=== PATIENT | male | born 1950 | race Caucasian/White ===

== ENCOUNTER 2021-08-30 13:39 | Inpatient (IN) ==
[2021-09-14] MEDS ORDERED: GLUCAGON 1 MG VIAL IM PRN (08:36)
[2021-09-14] MEDS ORDERED: CLORAZEPATE 3.75 MG TABLET PO PRN (13:40)
[2021-09-14] MEDS ORDERED: hydrALAZINE 20 MG/1 ML VIAL IV PRN (13:40)
[2021-09-14] MEDS ORDERED: SODIUM CHLORIDE 0.9% 1,000 ML IV SCH (16:00)
[2021-09-14] MEDS ORDERED: DEXTROSE 10% 250 ML BAG IV PRN (16:58)
[2021-09-14 18:03] LABS: Basophils % 0.4 % (0.0-0.8); Eosinophils # 0.1 10*3/uL (0.0-0.87); Eosinophils % 1.8 % (0.00-10.9); Hematocrit 40.1 VOL% (42.0-52.0); Immature Granulocytes % 0.2 %; Immature Granulocytes Absolute 0.01 #; Lymphocytes # 1.9 10*3/uL (1.4-4.0); Mean Corpuscular HGB Conc 32.4 GM/DL (32-36); Mean Corpuscular Volume 94.4 FL (87-102); Mean Platelet Volume 10.3 FL (9.6-12.0); Monocytes % 7.1 % (1.7-12.7); Neutrophils % 52.5 % (38.7-73.9); Platelet Count 179 T/CUMM (130-400); Red Blood Count 4.25 MC/CUMM (3.8-5.5); Red Cell Distribution Width 12.9 % (9.3-17.3); White Blood Count 4.9 T/CUMM (4-12)
[2021-09-14 18:21] LABS: Albumin 3.3 G/DL (3.4-5.0); Bilirubin,Total 0.7 MG/DL (0.20-1.00); Calcium 8.9 MG/DL (8.5-10.1); Osmolality,Calculated 277.7 MOS/KG (273-304); Potassium 4.3 MMOL/L (3.5-5.1); Total Protein 6.8 G/DL (6.4-8.2)
[2021-09-14] MEDS: CHLORHEXIDINE 4% SOLN 118 ML BOTTLE TOP SCH ×2 (19:05→20:44)
[2021-09-14] MEDS: CHLORHEXIDINE 0.12% ORAL RINSE 60 ML BOTTLE SWISH/SPIT SCH (20:44)
[2021-09-15] MEDS ORDERED: VANCOMYCIN 1,000 MG VIAL ONE (04:15)
[2021-09-15] MEDS: CHLORHEXIDINE 4% SOLN 118 ML BOTTLE TOP SCH (04:30)
[2021-09-15] MEDS ORDERED: CEFUROXIME INJ 1,500 MG in SODIUM CHLORIDE 0.9% 100 ML IV ONE (05:00)
[2021-09-15] MEDS ORDERED: FAMOTIDINE 20 MG TABLET PO ONE (06:00)
[2021-09-15] MEDS ORDERED: SUCCINYLCHOLINE 200 MG/10 ML VIAL ONE (06:14)
[2021-09-15] MEDS ORDERED: MIDAZOLAM 10 MG/2 ML VIAL ONE ×3 (06:14)
[2021-09-15] MEDS ORDERED: SEVOFLURANE 1 UNIT/15 MINUTE INH ONE ×14 (06:14→10:28)
[2021-09-15] MEDS ORDERED: ETOMIDATE 40 MG/20 ML VIAL IV ONE (06:14)
[2021-09-15] MEDS ORDERED: LIDOCAINE 2% 5 ML VIAL ONE ×2 (06:14→09:43)
[2021-09-15] MEDS ORDERED: SUFentanil 250 MCG/5 ML AMP ONE ×3 (06:15)
[2021-09-15] MEDS ORDERED: SODIUM CHLORIDE 0.9% 250 ML IV ONE (06:16)
[2021-09-15] MEDS ORDERED: LACTATED RINGERS 1,000 ML IV ONE (06:16)
[2021-09-15] MEDS ORDERED: SODIUM CHLORIDE 0.9% 1,000 ML IV ONE (06:16)
[2021-09-15] MEDS ORDERED: SODIUM CHLORIDE 0.9% 100 ML IV ONE (06:16)
[2021-09-15] MEDS ORDERED: AMINOCAPROIC ACID 5,000 MG/20 ML VIAL ONE (06:16)
[2021-09-15] MEDS ORDERED: CALCIUM CHLORIDE 1,000 MG/10 ML VIAL IV ONE ×2 (06:16→09:25)
[2021-09-15] MEDS ORDERED: NITROGLYCERIN DRIP 50 MG/250 ML BOTTLE IV ONE (06:20)
[2021-09-15] MEDS ORDERED: PHENYLEPHRINE DRIP 20 MG/250 ML PREMIX IV ONE (06:20)
[2021-09-15] MEDS ORDERED: HEPARIN/NACL 0.9% 2 UNITS/ML 1,000 UNIT/500 ML BAG IV ONE (06:20)
[2021-09-15] MEDS ORDERED: DIAZEPAM 5 MG TABLET PO ONE (06:30)
[2021-09-15] MEDS ORDERED: ePHEDrine 50 MG/ML VIAL ONE (06:36)
[2021-09-15] MEDS ORDERED: SODIUM BICARBONATE 50 MEQ/50 ML VIAL IV ONE ×2 (07:27→09:44)
[2021-09-15] MEDS ORDERED: NITROPRUSSIDE 50 MG/2 ML VIAL ONE ×2 (07:27→19:57)
[2021-09-15] MEDS ORDERED: POTASSIUM CHLORIDE RIDER 20 MEQ/100 ML PREMIX IV ONE (07:27)
[2021-09-15] MEDS ORDERED: PHENYLEPHRINE DRIP 40 MG/250 ML PREMIX IV ONE (07:28)
[2021-09-15] MEDS ORDERED: CALCIUM CHLORIDE 1,000 MG/10 ML SYRINGE IV ONE (07:28)
[2021-09-15 07:30] LABS: ABG Base Excess 4.1 MMOL/L (-2.5-2.5); ABG HCO3 28.1 MMOL/L (20-26); ABG PCO2 38.5 MM HG (35-48); ABG PH 7.468 (7.35-7.45); ABG TCO2 24.3 MMOL/L (23-27); Glucose Heart Surgery 105 MG/DL (74-106); Hematocrit Heart Surgery 38.7 PERCENT (42-52); Hemoglobin Heart Surgery 12.6 G/DL (14.0-18.0); PCO2 Patient Temp Arterial 38.5 MMHG; PH Patient Temp Arterial 7.468; Patient Temperature 37 CELCIUS; Potassium Heart/CVR 4.9 MMOL/L (3.5-5.1); Sodium Heart/CVR 140 MMOL/L (135-145)
[2021-09-15] MEDS ORDERED: ALBUMIN 5% 12.5 GM/250 ML VIAL IV ONE ×2 (07:33)
[2021-09-15] MEDS ORDERED: MINERAL OIL/PETROLATUM OPH OINT 3.5 GM TUBE ONE (07:34)
[2021-09-15 07:36] LABS: Bacteria,Urine Occasional /HPF (Few); RBC,Urine 14 /HPF (0-4); Urine Appearance Clear (Clear); Urine Color Yellow (Yellow)
[2021-09-15 07:37] LABS: Bilirubin,Urine Negative (Negative); Blood, Urine Large mg/dL (Negative); Glucose,Urine (UA) Negative (Negative); Ketones,Urine Negative (Negative); Nitrite,Urine Negative (Negative); Protein,Urine Negative; Urine Specific Gravity 1.015 (1.001-1.035); Urine Urobilinogen 0.2 EU/DL (<2.0); Urine pH 7.5 (4.5-8.0)
[2021-09-15] MEDS ORDERED: VECURONIUM 10 MG VIAL IV ONE (08:00)
[2021-09-15 08:23] LABS: Hematocrit Heart Surgery 30.7 PERCENT (42-52); Hemoglobin Heart Surgery 9.9 G/DL (14.0-18.0); PCO2 Patient Temp Venous 33.6 MM HG; PH Patient Temp Venous 7.511; PO2 Patient Temp Venous 36.1 MM HG; Potassium Heart/CVR 4.9 MMOL/L (3.5-5.1); VBG Base Excess 4.1 MEQ/L (0-4); VBG HCO3 27.8 MEQ/L (24-28); VBG Oxygen Saturation 80.7 %; VBG PCO2 38.8 MMHG (41-51); VBG PH 7.466; VBG PO2 44.4 MMHG (17-40); VBG Total CO2 25.5 MMOL/L
[2021-09-15] MEDS: CHLORHEXIDINE 0.12% ORAL RINSE 60 ML BOTTLE SWISH/SPIT SCH (08:49)
[2021-09-15 09:40] LABS: ABG Base Excess 2.4 MMOL/L (-2.5-2.5); ABG HCO3 26.6 MMOL/L (20-26); ABG PCO2 36.1 MM HG (35-48); ABG PH 7.465 (7.35-7.45); ABG TCO2 23.1 MMOL/L (23-27); Glucose Heart Surgery 217 MG/DL (74-106); Hematocrit Heart Surgery 34.5 PERCENT (42-52); Hemoglobin Heart Surgery 11.2 G/DL (14.0-18.0); Ionized Calcium Arterial 1.39 MMOL/L (1.21-1.46); PCO2 Patient Temp Arterial 36.1 MMHG; PH Patient Temp Arterial 7.465; Patient Temperature 37 CELCIUS; Potassium Heart/CVR 4.6 MMOL/L (3.5-5.1); Sodium Heart/CVR 134 MMOL/L (135-145)
[2021-09-15] MEDS ORDERED: ALBUMIN 25% 25 GM/100 ML VIAL IV ONE (09:43)
[2021-09-15] MEDS ORDERED: HEPARIN 10,000 UNIT/10 ML VIAL ONE (09:43)
[2021-09-15] MEDS ORDERED: MANNITOL 100 GM/500 ML BAG IV ONE (09:43)
[2021-09-15] MEDS ORDERED: DEXTROSE 5% KCL 20 MEQ 20 MEQ/1,000 ML BAG IV ONE (09:43)
[2021-09-15] MEDS ORDERED: MAGNESIUM SULFATE 5 GM/10 ML VIAL IV ONE (09:43)
[2021-09-15] MEDS ORDERED: methylPREDNISolone SOD SUC 1,000 MG/8 ML VIAL ONE (09:43)
[2021-09-15] MEDS ORDERED: PROTAMINE SULFATE 250 MG/25 ML VIAL IV ONE (09:43)
[2021-09-15] MEDS ORDERED: FUROSEMIDE 20 MG/2 ML VIAL ONE (09:44)
[2021-09-15] MEDS ORDERED: MORPHINE 4 MG/1 ML VIAL IV PRN ×2 (09:56→21:28)
[2021-09-15] MEDS ORDERED: CHLORHEXIDINE 4% SOLN 118 ML BOTTLE TOP PRN (10:14)
[2021-09-15] MEDS ORDERED: POTASSIUM CHLORIDE RIDER 10 MEQ/100 ML PREMIX IV PRN (10:14)
[2021-09-15] MEDS ORDERED: INSULIN REGULAR 100 UNIT/ML IV ONE (10:14)
[2021-09-15] MEDS ORDERED: CALCIUM CHLORIDE 1,000 MG/10 ML SYRINGE IV PRN (10:14)
[2021-09-15] MEDS ORDERED: ACETAMINOPHEN 650 MG SUPP RECTAL PRN (10:14)
[2021-09-15] MEDS ORDERED: PHENYLEPHRINE DRIP 40 MG/250 ML PREMIX IV PRN (10:14)
[2021-09-15] MEDS ORDERED: NITROPRUSSIDE 100 MG in DEXTROSE 5% 250 ML IV PRN (10:14)
[2021-09-15] MEDS ORDERED: MORPHINE 10 MG/1 ML VIAL IV PRN (10:14)
[2021-09-15] MEDS ORDERED: MAGNESIUM SULF RIDER 4 GM/100 ML PREMIX IV PRN (10:14)
[2021-09-15] MEDS ORDERED: VECURONIUM 10 MG VIAL IV PRN ×2 (10:14)
[2021-09-15] MEDS ORDERED: DEXTROSE 10% 250 ML BAG IV PRN ×2 (10:14)
[2021-09-15] MEDS ORDERED: MIDAZOLAM 10 MG/2 ML VIAL IV PRN (10:14)
[2021-09-15] MEDS ORDERED: LACTATED RINGERS 250 ML IV PRN (10:14)
[2021-09-15] MEDS ORDERED: MIDAZOLAM 2 MG/2 ML VIAL IV PRN (10:14)
[2021-09-15] MEDS ORDERED: MAGNESIUM SULF RIDER 2 GM/50 ML PREMIX IV PRN (10:14)
[2021-09-15] MEDS ORDERED: INSULIN REGULAR 100 UNIT/ML IV PRN (10:14)
[2021-09-15] MEDS ORDERED: INSULIN REGULAR DRIP 100 ML IV SCH (10:30)
[2021-09-15] MEDS ORDERED: SODIUM CHLORIDE 0.45% 1,000 ML IV SCH ×2 (10:30)
[2021-09-15 10:50] LABS: ABG Base Excess 3.4 MMOL/L (-2.5-2.5); ABG HCO3 27.4 MMOL/L (20-26); ABG Oxygen Saturation 99.4 % (95-100); ABG PCO2 39.6 MM HG (35-48); ABG TCO2 23.9 MMOL/L (23-27); Glucose Heart Surgery 220 MG/DL (74-106)
[2021-09-15 10:52] LABS: Basophils % 0.2 % (0.0-0.8); Eosinophils % 0.2 % (0.00-10.9); Hematocrit 37.5 VOL% (42.0-52.0); Hemoglobin 12.7 GM/DL (14.0-18.0); Immature Granulocytes % 0.7 %; Immature Granulocytes Absolute 0.06 #; Lymphocytes # 0.4 10*3/uL (1.4-4.0); Lymphocytes % 4.9 % (21.2-54.2); Mean Corpuscular HGB Conc 33.9 GM/DL (32-36); Mean Corpuscular Volume 91.5 FL (87-102); Mean Platelet Volume 10.1 FL (9.6-12.0); Monocytes % 2.1 % (1.7-12.7); Neutrophils % 91.9 % (38.7-73.9); Platelet Count 160 T/CUMM (130-400); Red Cell Distribution Width 12.7 % (9.3-17.3)
[2021-09-15 11:02] LABS: INR 1.1; PT Patient Result 12.4 SECS (10.5-12.0); Partial Thromboplastin Time 26.6 SECS (23.8-32.1)
[2021-09-15 11:12] LABS: CKMB % 6.4 %
[2021-09-15 11:16] LABS: Albumin 3.3 G/DL (3.4-5.0); Bilirubin,Total 1.3 MG/DL (0.20-1.00); Calcium 10.1 MG/DL (8.5-10.1); Osmolality,Calculated 283.7 MOS/KG (273-304); Total Protein 6.3 G/DL (6.4-8.2)
[2021-09-15 11:17] LABS: High Sensitive Troponin I* 2331.3 ng/L (0-78)
[2021-09-15] MEDS: POTASSIUM CHLORIDE RIDER 20 MEQ/100 ML PREMIX IV PRN ×2 (11:37→19:41)
[2021-09-15] MEDS: ALBUMIN 5% 12.5 GM/250 ML VIAL IV PRN ×2 (11:50→17:56)
[2021-09-15] MEDS: LACTATED RINGERS 1,000 ML IV PRN ×2 (12:02→16:20)
[2021-09-15 12:03] LABS: Anisocytosis 1+; Band Neutrophils 12 % (0-10); Lymphocytes 3 % (20-55); Macrocytosis 1+; Metamyelocytes 1 %; Platelet Estimate Normal; Segmented Neutrophils 83 % (50-85); Total Cells Counted 100
[2021-09-15 13:10] LABS: ABG Base Excess 3.4 MMOL/L (-2.5-2.5); ABG HCO3 27.5 MMOL/L (20-26); ABG Oxygen Saturation 99.2 % (95-100); ABG PCO2 42.8 MM HG (35-48); ABG PH 7.427 (7.35-7.45); ABG TCO2 24.7 MMOL/L (23-27); Glucose Heart Surgery 191 MG/DL (74-106); Hematocrit Heart Surgery 38.6 PERCENT (42-52); Hemoglobin Heart Surgery 12.6 G/DL (14.0-18.0); Potassium Heart/CVR 4.2 MMOL/L (3.5-5.1)
[2021-09-15 16:19] LABS: ABG Base Excess 2.6 MMOL/L (-2.5-2.5); ABG HCO3 26.7 MMOL/L (20-26); ABG PCO2 44.5 MM HG (35-48); ABG PH 7.403 (7.35-7.45); ABG TCO2 24.6 MMOL/L (23-27); Glucose Heart Surgery 150 MG/DL (74-106); Hematocrit Heart Surgery 36.3 PERCENT (42-52); Hemoglobin Heart Surgery 11.8 G/DL (14.0-18.0); Potassium Heart/CVR 4.2 MMOL/L (3.5-5.1)
[2021-09-15 18:01] LABS: ABG Base Excess 3.1 MMOL/L (-2.5-2.5); ABG HCO3 27.2 MMOL/L (20-26); ABG Oxygen Saturation 98.9 % (95-100); ABG PCO2 43.4 MM HG (35-48); ABG PH 7.418 (7.35-7.45); ABG TCO2 24.9 MMOL/L (23-27); Glucose Heart Surgery 169 MG/DL (74-106); Hematocrit Heart Surgery 35.5 PERCENT (42-52); Hemoglobin Heart Surgery 11.5 G/DL (14.0-18.0); Potassium Heart/CVR 4.4 MMOL/L (3.5-5.1)
[2021-09-15] MEDS: CEFUROXIME INJ 1,500 MG in SODIUM CHLORIDE 0.9% 100 ML IV SCH (18:30)
[2021-09-15 19:32] LABS: ABG Base Excess 0.5 MMOL/L (-2.5-2.5); ABG HCO3 24.8 MMOL/L (20-26); ABG Oxygen Saturation 97.3 % (95-100); ABG PCO2 44.1 MM HG (35-48); ABG PH 7.377 (7.35-7.45); ABG PO2 98.1 MM HG (80-95); ABG TCO2 22.9 MMOL/L (23-27); Glucose Heart Surgery 215 MG/DL (74-106); Hematocrit Heart Surgery 37.8 PERCENT (42-52); Hemoglobin Heart Surgery 12.3 G/DL (14.0-18.0); Potassium Heart/CVR 4.2 MMOL/L (3.5-5.1)
[2021-09-15 20:00] LABS: CKMB % 4.3 %
[2021-09-15 20:03] LABS: High Sensitive Troponin I* 6709.5 ng/L (0-78)
[2021-09-15 20:13] LABS: ABG Base Excess 0.5 MMOL/L (-2.5-2.5); ABG HCO3 24.8 MMOL/L (20-26); ABG Oxygen Saturation 98.3 % (95-100); ABG PCO2 43.5 MM HG (35-48); ABG PH 7.381 (7.35-7.45); ABG TCO2 22.8 MMOL/L (23-27); Glucose Heart Surgery 223 MG/DL (74-106); Hematocrit Heart Surgery 38.3 PERCENT (42-52); Hemoglobin Heart Surgery 12.5 G/DL (14.0-18.0); Potassium Heart/CVR 4.9 MMOL/L (3.5-5.1)
[2021-09-15] MEDS ORDERED: CHLORHEXIDINE 0.12% ORAL RINSE 60 ML BOTTLE SWISH/SPIT SCH (21:00)
[2021-09-15] MEDS: ONDANSETRON 4 MG/2 ML VIAL IV PRN (21:15)
[2021-09-15 21:19] LABS: ABG Base Excess 0.1 MMOL/L (-2.5-2.5); ABG HCO3 24.5 MMOL/L (20-26); ABG Oxygen Saturation 98.3 % (95-100); ABG PCO2 41.7 MM HG (35-48); ABG PH 7.389 (7.35-7.45); ABG TCO2 22.3 MMOL/L (23-27); Glucose Heart Surgery 239 MG/DL (74-106); Hematocrit Heart Surgery 37.4 PERCENT (42-52); Hemoglobin Heart Surgery 12.1 G/DL (14.0-18.0); Potassium Heart/CVR 4.4 MMOL/L (3.5-5.1)
[2021-09-15] MEDS: ALBUTEROL 1.25 MG/3 ML NEB RESP TX PRN (21:54)
[2021-09-15 22:19] LABS: ABG Base Excess -1.6 MMOL/L (-2.5-2.5); ABG Oxygen Saturation 96.3 % (95-100); ABG PCO2 50.2 MM HG (35-48); ABG PH 7.309 (7.35-7.45); ABG PO2 94.4 MM HG (80-95); ABG TCO2 22.7 MMOL/L (23-27); Glucose Heart Surgery 223 MG/DL (74-106); Hematocrit Heart Surgery 36.2 PERCENT (42-52); Hemoglobin Heart Surgery 11.7 G/DL (14.0-18.0); Potassium Heart/CVR 4.4 MMOL/L (3.5-5.1)
[2021-09-15 23:18] LABS: ABG Base Excess -1.3 MMOL/L (-2.5-2.5); ABG HCO3 23.3 MMOL/L (20-26); ABG PCO2 49.8 MM HG (35-48); ABG PH 7.316 (7.35-7.45); ABG PO2 90.5 MM HG (80-95); ABG TCO2 22.9 MMOL/L (23-27); Glucose Heart Surgery 201 MG/DL (74-106); Hematocrit Heart Surgery 35.5 PERCENT (42-52); Hemoglobin Heart Surgery 11.5 G/DL (14.0-18.0); Potassium Heart/CVR 4.5 MMOL/L (3.5-5.1)
[2021-09-16] MEDS ORDERED: FUROSEMIDE 40 MG/4 ML VIAL ONE (01:01)
[2021-09-16] MEDS ORDERED: FUROSEMIDE 40 MG/4 ML VIAL IV PRN (01:07)
[2021-09-16 02:25] LABS: ABG Base Excess 2.7 MMOL/L (-2.5-2.5); ABG HCO3 26.8 MMOL/L (20-26); ABG Oxygen Saturation 96.6 % (95-100); ABG PCO2 32.1 MM HG (35-48); ABG PH 7.503 (7.35-7.45); ABG PO2 78.4 MM HG (80-95); ABG TCO2 22.2 MMOL/L (23-27); Glucose Heart Surgery 165 MG/DL (74-106); Hematocrit Heart Surgery 37.4 PERCENT (42-52); Hemoglobin Heart Surgery 12.2 G/DL (14.0-18.0); Potassium Heart/CVR 4.3 MMOL/L (3.5-5.1)
[2021-09-16] MEDS: ALBUTEROL 1.25 MG/3 ML NEB RESP TX PRN (02:27)
[2021-09-16] MEDS: POTASSIUM CHLORIDE RIDER 20 MEQ/100 ML PREMIX IV PRN (02:31)
[2021-09-16] MEDS: ONDANSETRON 4 MG/2 ML VIAL IV PRN ×2 (02:35→14:55)
[2021-09-16 04:10] LABS: ABG Base Excess 2.4 MMOL/L (-2.5-2.5); ABG HCO3 26.5 MMOL/L (20-26); ABG Oxygen Saturation 95.4 % (95-100); ABG PCO2 59.3 MM HG (35-48); ABG PH 7.314 (7.35-7.45); ABG PO2 87.2 MM HG (80-95); ABG TCO2 27.1 MMOL/L (23-27); Glucose Heart Surgery 144 MG/DL (74-106); Hematocrit Heart Surgery 35.8 PERCENT (42-52); Hemoglobin Heart Surgery 11.6 G/DL (14.0-18.0); Potassium Heart/CVR 4.6 MMOL/L (3.5-5.1)
[2021-09-16 04:23] LABS: Basophils % 0.1 % (0.0-0.8); Hematocrit 35.3 VOL% (42.0-52.0); Hemoglobin 11.6 GM/DL (14.0-18.0); Immature Granulocytes % 0.6 %; Immature Granulocytes Absolute 0.11 #; Lymphocytes # 0.5 10*3/uL (1.4-4.0); Lymphocytes % 2.8 % (21.2-54.2); Mean Corpuscular HGB Conc 32.9 GM/DL (32-36); Mean Corpuscular Volume 92.4 FL (87-102); Mean Platelet Volume 10.6 FL (9.6-12.0); Monocytes % 5.3 % (1.7-12.7); Neutrophils % 91.2 % (38.7-73.9); Platelet Count 130 T/CUMM (130-400); Red Blood Count 3.82 MC/CUMM (3.8-5.5); Red Cell Distribution Width 13.2 % (9.3-17.3); White Blood Count 17.2 T/CUMM (4-12)
[2021-09-16 04:42] LABS: Albumin 3.6 G/DL (3.4-5.0); Bilirubin,Direct 0.19 MG/DL (0.0-0.20); Bilirubin,Total 0.7 MG/DL (0.20-1.00); Calcium 9.4 MG/DL (8.5-10.1); Osmolality,Calculated 285.4 MOS/KG (273-304); Potassium 4.6 MMOL/L (3.5-5.1); Total Protein 6.2 G/DL (6.4-8.2)
[2021-09-16 04:44] LABS: CKMB % 2.7 %; High Sensitive Troponin I* 7317.2 ng/L (0-78)
[2021-09-16 05:11] LABS: Lymphocytes 1 % (20-55); Platelet Estimate Adequate; Segmented Neutrophils 99 % (50-85); Total Cells Counted 100
[2021-09-16 05:14] LABS: ABG Base Excess 3.3 MMOL/L (-2.5-2.5); ABG HCO3 27.3 MMOL/L (20-26); ABG Oxygen Saturation 95.2 % (95-100); ABG PCO2 51.1 MM HG (35-48); ABG PH 7.372 (7.35-7.45); ABG PO2 80.2 MM HG (80-95); ABG TCO2 26.4 MMOL/L (23-27); Glucose Heart Surgery 123 MG/DL (74-106); Hematocrit Heart Surgery 36.8 PERCENT (42-52); Potassium Heart/CVR 4.6 MMOL/L (3.5-5.1)
[2021-09-16] MEDS: CEFUROXIME INJ 1,500 MG in SODIUM CHLORIDE 0.9% 100 ML IV SCH ×2 (05:44→18:34)
[2021-09-16] MEDS ORDERED: POTASSIUM CHLORIDE 20 MEQ TABLET PO PRN (08:17)
[2021-09-16] MEDS ORDERED: MAGNESIUM HYDROXIDE SUSP 30 ML UDCUP PO PRN (08:17)
[2021-09-16] MEDS ORDERED: MAGNESIUM SULF RIDER 4 GM/100 ML PREMIX IV PRN (08:17)
[2021-09-16] MEDS ORDERED: MAGNESIUM SULF RIDER 2 GM/50 ML PREMIX IV PRN (08:17)
[2021-09-16] MEDS ORDERED: ACETAMINOPHEN 325 MG TABLET PO PRN (08:17)
[2021-09-16] MEDS ORDERED: DEXTROSE 10% 250 ML BAG IV PRN (08:17)
[2021-09-16] MEDS ORDERED: ALUMINUM/MAGNES/SIMETH MAX STR 30 ML UDCUP PO PRN (08:17)
[2021-09-16] MEDS ORDERED: oxyCODONE/ACETAMINOPHEN 5-325 MG TABLET PO PRN (08:17)
[2021-09-16] MEDS ORDERED: GLUCAGON 1 MG VIAL IM PRN (08:17)
[2021-09-16] MEDS ORDERED: ASPIRIN EC 325 MG TABLET PO ONE (09:00)
[2021-09-16] MEDS: amLODIPine 5 MG TABLET PO SCH (09:20)
[2021-09-16] MEDS: DOCUSATE SODIUM 100 MG CAPSULE PO SCH (09:20)
[2021-09-16] MEDS: LOSARTAN 25 MG TABLET PO SCH (09:20)
[2021-09-16] MEDS: FERROUS SULFATE 325 MG TABLET PO SCH (09:20)
[2021-09-16] MEDS: PANTOPRAZOLE 40 MG TABLET PO SCH (09:20)
[2021-09-16] MEDS: CHLORHEXIDINE 0.12% ORAL RINSE 60 ML BOTTLE SWISH/SPIT SCH ×2 (09:21→21:31)
[2021-09-16] MEDS: METOPROLOL TARTRATE 25 MG TABLET PO SCH ×2 (10:14→21:31)
[2021-09-16] MEDS: AMIODARONE 200 MG TABLET PO SCH ×2 (10:14→21:31)
[2021-09-16 11:39] LABS: CKMB % 2.2 %
[2021-09-16 11:40] LABS: High Sensitive Troponin I* 2667.6 ng/L (0-78)
[2021-09-16] MEDS: SODIUM CHLOR 0.45% KCL 20 MEQ 20 MEQ/1,000 ML BAG IV SCH (16:57)
[2021-09-17] MEDS: ZALEPLON 5 MG CAPSULE PO PRN ×2 (01:39→22:35)
[2021-09-17] MEDS ORDERED: FUROSEMIDE 40 MG/4 ML VIAL IV ONE (06:00)
[2021-09-17 06:28] LABS: Basophils % 0.1 % (0.0-0.8); Hematocrit 36.1 VOL% (42.0-52.0); Hemoglobin 11.6 GM/DL (14.0-18.0); Immature Granulocytes % 1.9 %; Lymphocytes # 0.7 10*3/uL (1.4-4.0); Lymphocytes % 3.4 % (21.2-54.2); Mean Corpuscular HGB Conc 32.1 GM/DL (32-36); Mean Corpuscular Volume 95.8 FL (87-102); Mean Platelet Volume 10.8 FL (9.6-12.0); Monocytes % 4.3 % (1.7-12.7); Neutrophils % 90.3 % (38.7-73.9); Platelet Count 102 T/CUMM (130-400); Red Blood Count 3.77 MC/CUMM (3.8-5.5); Red Cell Distribution Width 13.5 % (9.3-17.3); White Blood Count 20.6 T/CUMM (4-12)
[2021-09-17 06:46] LABS: Albumin 3.2 G/DL (3.4-5.0); Bilirubin,Direct 0.16 MG/DL (0.0-0.20); Bilirubin,Total 0.6 MG/DL (0.20-1.00); Calcium 9.1 MG/DL (8.5-10.1); Total Protein 6.2 G/DL (6.4-8.2)
[2021-09-17 06:47] LABS: Lymphocytes 6 % (20-55); Segmented Neutrophils 92 % (50-85); Total Cells Counted 100
[2021-09-17 06:49] LABS: Albumin 3.2 G/DL (3.4-5.0); Bilirubin,Direct 0.14 MG/DL (0.0-0.20); Bilirubin,Indirect 0.5 MG/DL (0.0-1.0); Bilirubin,Total 0.6 MG/DL (0.20-1.00); High Sensitive Troponin I* 1413.4 ng/L (0-78); Total Protein 5.9 G/DL (6.4-8.2)
[2021-09-17 06:55] LABS: Potassium 4.7 MMOL/L (3.5-5.1)
[2021-09-17 06:59] LABS: Osmolality,Calculated 280.1 MOS/KG (273-304)
[2021-09-17] MEDS: AMIODARONE 200 MG TABLET PO SCH ×2 (08:44→21:03)
[2021-09-17] MEDS: METOPROLOL TARTRATE 25 MG TABLET PO SCH ×2 (08:44→21:03)
[2021-09-17] MEDS: PANTOPRAZOLE 40 MG TABLET PO SCH (08:45)
[2021-09-17] MEDS: ASPIRIN EC 81 MG TABLET PO SCH (08:45)
[2021-09-17] MEDS: LOSARTAN 25 MG TABLET PO SCH (08:45)
[2021-09-17] MEDS: DOCUSATE SODIUM 100 MG CAPSULE PO SCH (08:45)
[2021-09-17] MEDS: FERROUS SULFATE 325 MG TABLET PO SCH (08:45)
[2021-09-17] MEDS: amLODIPine 5 MG TABLET PO SCH (08:45)
[2021-09-17] MEDS: CHLORHEXIDINE 0.12% ORAL RINSE 60 ML BOTTLE SWISH/SPIT SCH ×2 (08:46→21:04)
[2021-09-17] MEDS: SODIUM CHLOR 0.45% KCL 20 MEQ 20 MEQ/1,000 ML BAG IV SCH (16:30)
[2021-09-18 06:29] LABS: Basophils % 0.1 % (0.0-0.8); Hematocrit 36.3 VOL% (42.0-52.0); Hemoglobin 11.8 GM/DL (14.0-18.0); Immature Granulocytes % 0.9 %; Immature Granulocytes Absolute 0.13 #; Lymphocytes % 6.3 % (21.2-54.2); Mean Corpuscular HGB Conc 32.5 GM/DL (32-36); Mean Corpuscular Volume 94.5 FL (87-102); Monocytes % 5.1 % (1.7-12.7); Neutrophils % 87.6 % (38.7-73.9); Red Blood Count 3.84 MC/CUMM (3.8-5.5)
[2021-09-18 06:31] LABS: Platelet Count 94 T/CUMM (130-400)
[2021-09-18 06:47] LABS: Hypochromia Slight; Microcytosis Slight; Platelet Estimate Decreased
[2021-09-18 07:06] LABS: Albumin 3.1 G/DL (3.4-5.0); Bilirubin,Direct 0.14 MG/DL (0.0-0.20); Bilirubin,Total 1.6 MG/DL (0.20-1.00); Osmolality,Calculated 277.1 MOS/KG (273-304); Potassium 4.5 MMOL/L (3.5-5.1); Total Protein 6.4 G/DL (6.4-8.2)
[2021-09-18 07:07] LABS: Alanine Aminotransferase 35 U/L (16-61); Albumin 3.3 G/DL (3.4-5.0); Alkaline Phosphatase 59 U/L (45-117); Aspartate Amino Transferase 34 U/L (0-37); Bilirubin,Indirect 0.5 MG/DL (0.0-1.0); Total Protein 6.1 G/DL (6.4-8.2)
[2021-09-18] MEDS ORDERED: LACTULOSE 20 GM/30 ML UDCUP PO PRN (08:16)
[2021-09-18] MEDS: DOCUSATE SODIUM 100 MG CAPSULE PO SCH (09:38)
[2021-09-18] MEDS: AMIODARONE 200 MG TABLET PO SCH ×2 (09:38→21:05)
[2021-09-18] MEDS: METOPROLOL TARTRATE 25 MG TABLET PO SCH ×2 (09:38→21:04)
[2021-09-18] MEDS: amLODIPine 5 MG TABLET PO SCH (09:38)
[2021-09-18] MEDS: PANTOPRAZOLE 40 MG TABLET PO SCH (09:39)
[2021-09-18] MEDS: ASPIRIN EC 81 MG TABLET PO SCH (09:39)
[2021-09-18] MEDS: FERROUS SULFATE 325 MG TABLET PO SCH (09:39)
[2021-09-18] MEDS: LOSARTAN 25 MG TABLET PO SCH (09:39)
[2021-09-18] MEDS: CHLORHEXIDINE 0.12% ORAL RINSE 60 ML BOTTLE SWISH/SPIT SCH ×2 (09:40→21:05)
[2021-09-18] MEDS: APIXABAN 5 MG TABLET PO SCH ×2 (09:42→21:05)
[2021-09-18] MEDS: POLYETHYLENE GLYCOL POWDER 17 GM PACK PO SCH (09:43)
[2021-09-18] MEDS: ZALEPLON 5 MG CAPSULE PO PRN (21:04)
[2021-09-19 06:10] LABS: Basophils % 0.1 % (0.0-0.8); Eosinophils % 0.2 % (0.00-10.9); Hematocrit 34.9 VOL% (42.0-52.0); Hemoglobin 11.3 GM/DL (14.0-18.0); Immature Granulocytes % 0.2 %; Immature Granulocytes Absolute 0.02 #; Lymphocytes % 12.7 % (21.2-54.2); Mean Corpuscular HGB Conc 32.4 GM/DL (32-36); Mean Corpuscular Volume 94.3 FL (87-102); Monocytes % 7.3 % (1.7-12.7); Neutrophils % 79.5 % (38.7-73.9); Platelet Count 109 T/CUMM (130-400); Red Cell Distribution Width 12.8 % (9.3-17.3); White Blood Count 8.1 T/CUMM (4-12)
[2021-09-19 06:22] LABS: Potassium 4.1 MMOL/L (3.5-5.1)
[2021-09-19] MEDS: ONDANSETRON 4 MG/2 ML VIAL IV PRN (09:45)
[2021-09-19] MEDS: AMIODARONE 200 MG TABLET PO SCH ×2 (09:46→11:23)
[2021-09-19] MEDS: amLODIPine 5 MG TABLET PO SCH ×2 (09:46→11:23)
[2021-09-19] MEDS: APIXABAN 5 MG TABLET PO SCH ×2 (09:46→11:23)
[2021-09-19] MEDS: METOPROLOL TARTRATE 25 MG TABLET PO SCH ×2 (09:46→11:23)
[2021-09-19] MEDS: FERROUS SULFATE 325 MG TABLET PO SCH ×2 (09:47→11:23)
[2021-09-19] MEDS: ASPIRIN EC 81 MG TABLET PO SCH ×2 (09:47→11:23)
[2021-09-19] MEDS: POLYETHYLENE GLYCOL POWDER 17 GM PACK PO SCH ×2 (09:47→11:23)
[2021-09-19] MEDS: PANTOPRAZOLE 40 MG TABLET PO SCH ×2 (09:47→11:25)
[2021-09-19] MEDS: DOCUSATE SODIUM 100 MG CAPSULE PO SCH ×2 (09:47→11:23)
[2021-09-19] MEDS: CHLORHEXIDINE 0.12% ORAL RINSE 60 ML BOTTLE SWISH/SPIT SCH ×3 (09:47→20:19)
[2021-09-19] MEDS: LOSARTAN 25 MG TABLET PO SCH ×2 (09:50→11:23)
[2021-09-19] MEDS ORDERED: PHENYLEPHRINE DRIP 40 MG/250 ML PREMIX IV ONE (10:05)
[2021-09-19] MEDS ORDERED: PHENYLEPHRINE DRIP 40 MG/250 ML PREMIX IV PRN ×2 (10:12→11:32)
[2021-09-19] MEDS ORDERED: SODIUM CHLORIDE 0.9% 1,000 ML IV ONE (10:14)
[2021-09-19] MEDS ORDERED: ROCURONIUM 50 MG/5 ML VIAL IV ONE (10:33)
[2021-09-19] MEDS ORDERED: ETOMIDATE 40 MG/20 ML VIAL IV ONE (10:33)
[2021-09-19] MEDS ORDERED: KETAMINE 500 MG/10 ML VIAL ONE (10:34)
[2021-09-19] MEDS ORDERED: SUCCINYLCHOLINE 200 MG/10 ML VIAL ONE (10:35)
[2021-09-19] MEDS ORDERED: ONDANSETRON 4 MG/2 ML VIAL IV ONE (10:35)
[2021-09-19] MEDS ORDERED: ALBUMIN 5% 25.0 GM/500 ML VIAL IV ONE ×2 (10:53→11:10)
[2021-09-19] MEDS ORDERED: CEFUROXIME INJ 1,500 MG in SODIUM CHLORIDE 0.9% 100 ML IV ONE (10:57)
[2021-09-19] MEDS ORDERED: VANCOMYCIN 1,000 MG VIAL ONE ×2 (11:07→11:08)
[2021-09-19] MEDS ORDERED: EPINEPHrine 1 MG/ML VIAL ONE (11:10)
[2021-09-19] MEDS ORDERED: SODIUM CHLORIDE 0.9% 100 ML IV ONE (11:10)
[2021-09-19] MEDS ORDERED: POTASSIUM CHLORIDE RIDER 20 MEQ/100 ML PREMIX IV ONE (11:10)
[2021-09-19] MEDS ORDERED: NITROPRUSSIDE 50 MG/2 ML VIAL ONE (11:10)
[2021-09-19] MEDS ORDERED: EPINEPHrine 1 MG/10 ML SYRINGE ONE (11:11)
[2021-09-19] MEDS ORDERED: ATROPINE 1 MG/10 ML SYRINGE ONE (11:11)
[2021-09-19] MEDS ORDERED: SODIUM CHLORIDE 0.9% 250 ML IV ONE (11:11)
[2021-09-19] MEDS ORDERED: LIDOCAINE 100 MG/5 ML SYRINGE ONE (11:11)
[2021-09-19] MEDS ORDERED: INSULIN REGULAR 100 UNIT/ML IV ONE (11:32)
[2021-09-19] MEDS ORDERED: MIDAZOLAM 2 MG/2 ML VIAL IV PRN (11:32)
[2021-09-19] MEDS ORDERED: ONDANSETRON 4 MG/2 ML VIAL IV PRN (11:32)
[2021-09-19] MEDS ORDERED: POTASSIUM CHLORIDE RIDER 10 MEQ/100 ML PREMIX IV PRN (11:32)
[2021-09-19] MEDS ORDERED: NITROPRUSSIDE 100 MG in DEXTROSE 5% 250 ML IV PRN (11:32)
[2021-09-19] MEDS ORDERED: CHLORHEXIDINE 4% SOLN 118 ML BOTTLE TOP PRN (11:32)
[2021-09-19] MEDS ORDERED: MIDAZOLAM 10 MG/2 ML VIAL IV PRN (11:32)
[2021-09-19] MEDS ORDERED: MAGNESIUM SULF RIDER 2 GM/50 ML PREMIX IV PRN (11:32)
[2021-09-19] MEDS ORDERED: LACTATED RINGERS 250 ML IV PRN (11:32)
[2021-09-19] MEDS ORDERED: INSULIN REGULAR 100 UNIT/ML IV PRN (11:32)
[2021-09-19] MEDS ORDERED: INSULIN REGULAR DRIP 100 ML IV SCH (11:32)
[2021-09-19] MEDS ORDERED: VECURONIUM 10 MG VIAL IV PRN ×2 (11:32)
[2021-09-19] MEDS ORDERED: ACETAMINOPHEN 650 MG SUPP RECTAL PRN (11:32)
[2021-09-19] MEDS ORDERED: DEXTROSE 10% 250 ML BAG IV PRN ×2 (11:32)
[2021-09-19] MEDS ORDERED: CALCIUM CHLORIDE 1,000 MG/10 ML SYRINGE IV PRN (11:32)
[2021-09-19] MEDS ORDERED: MAGNESIUM SULF RIDER 4 GM/100 ML PREMIX IV PRN (11:32)
[2021-09-19] MEDS ORDERED: SODIUM CHLORIDE 0.45% 1,000 ML IV SCH ×2 (11:32)
[2021-09-19] MEDS ORDERED: SEVOFLURANE 1 UNIT/15 MINUTE INH ONE (11:33)
[2021-09-19] MEDS: AMIODARONE INJ 100 MG in DEXTROSE 5% 100 ML IV SCH ×2 (12:16→23:22)
[2021-09-19] MEDS ORDERED: MIDAZOLAM 10 MG/2 ML VIAL ONE (12:41)
[2021-09-19] MEDS ORDERED: SUFentanil 250 MCG/5 ML AMP ONE (12:41)
[2021-09-19 13:04] LABS: ABG Base Excess 0.9 MMOL/L (-2.5-2.5); ABG HCO3 24.8 MMOL/L (20-26); ABG Oxygen Saturation 98.4 % (95-100); ABG PCO2 36.3 MM HG (35-48); ABG PH 7.452 (7.35-7.45); ABG PO2 164.8 MM HG (80-95); ABG TCO2 25.9 MMOL/L (23-27); Glucose Heart Surgery 212 MG/DL (74-106); Hemoglobin Heart Surgery 9.3 G/DL (14.0-18.0)
[2021-09-19 13:20] LABS: Hematocrit 26.3 VOL% (42.0-52.0); Hemoglobin 8.8 GM/DL (14.0-18.0); Immature Granulocytes % 0.7 %; Immature Granulocytes Absolute 0.07 #; Lymphocytes # 0.4 10*3/uL (1.4-4.0); Mean Corpuscular HGB Conc 33.5 GM/DL (32-36); Mean Corpuscular Volume 93.6 FL (87-102); Mean Platelet Volume 11.4 FL (9.6-12.0); Monocytes % 5.4 % (1.7-12.7); Neutrophils % 89.9 % (38.7-73.9); Platelet Count 94 T/CUMM (130-400); Red Blood Count 2.81 MC/CUMM (3.8-5.5); Red Cell Distribution Width 12.7 % (9.3-17.3); White Blood Count 10.6 T/CUMM (4-12)
[2021-09-19 13:27] LABS: INR 1.1; PT Patient Result 12.6 SECS (10.5-12.0); Partial Thromboplastin Time 24.8 SECS (23.8-32.1)
[2021-09-19 13:34] LABS: Albumin 2.7 G/DL (3.4-5.0); Bilirubin,Total 0.7 MG/DL (0.20-1.00); Calcium 7.7 MG/DL (8.5-10.1); Osmolality,Calculated 287.8 MOS/KG (273-304); Potassium 4.2 MMOL/L (3.5-5.1)
[2021-09-19] MEDS: LACTATED RINGERS 1,000 ML IV PRN ×2 (14:30→16:15)
[2021-09-19 16:03] LABS: ABG Base Excess 3.7 MMOL/L (-2.5-2.5); ABG HCO3 27.7 MMOL/L (20-26); ABG Oxygen Saturation 98.3 % (95-100); ABG PCO2 37.5 MM HG (35-48); ABG PH 7.472 (7.35-7.45); Glucose Heart Surgery 132 MG/DL (74-106); Hematocrit Heart Surgery 29.3 PERCENT (42-52); Hemoglobin Heart Surgery 9.5 G/DL (14.0-18.0); Potassium Heart/CVR 4.5 MMOL/L (3.5-5.1)
[2021-09-19] MEDS: MORPHINE 10 MG/1 ML VIAL IV PRN ×2 (16:13→20:15)
[2021-09-19] MEDS: ALBUMIN 5% 12.5 GM/250 ML VIAL IV PRN ×3 (16:29→17:59)
[2021-09-19 17:06] LABS: ABG Base Excess 2.3 MMOL/L (-2.5-2.5); ABG HCO3 26.9 MMOL/L (20-26); ABG Oxygen Saturation 97.2 % (95-100); ABG PCO2 41.8 MM HG (35-48); ABG PH 7.426 (7.35-7.45); ABG PO2 104.4 MM HG (80-95); ABG TCO2 28.2 MMOL/L (23-27); Glucose Heart Surgery 111 MG/DL (74-106); Potassium Heart/CVR 4.2 MMOL/L (3.5-5.1)
[2021-09-19] MEDS ORDERED: FUROSEMIDE 40 MG/4 ML VIAL IV ONE (18:30)
[2021-09-19] MEDS: CEFUROXIME INJ 1,500 MG in SODIUM CHLORIDE 0.9% 100 ML IV SCH (18:36)
[2021-09-19 19:41] LABS: ABG Base Excess 3.7 MMOL/L (-2.5-2.5); ABG HCO3 27.7 MMOL/L (20-26); ABG Oxygen Saturation 96.3 % (95-100); ABG PCO2 45.6 MM HG (35-48); ABG PH 7.409 (7.35-7.45); ABG PO2 81.6 MM HG (80-95); ABG TCO2 26.6 MMOL/L (23-27); Glucose Heart Surgery 136 MG/DL (74-106); Hematocrit Heart Surgery 27.8 PERCENT (42-52); Hemoglobin Heart Surgery 8.9 G/DL (14.0-18.0); Potassium Heart/CVR 4.1 MMOL/L (3.5-5.1)
[2021-09-19] MEDS: INSULIN REGULAR 100 UNIT/ML SUBCUT SCH (19:58)
[2021-09-19] MEDS: POTASSIUM CHLORIDE RIDER 20 MEQ/100 ML PREMIX IV PRN (20:10)
[2021-09-19] MEDS ORDERED: ASCORBIC ACID 500 MG TABLET PO SCH (21:00)
[2021-09-19] MEDS ORDERED: ROSUVASTATIN 10 MG TABLET PO SCH (21:00)
[2021-09-19] MEDS ORDERED: ATORVASTATIN 20 MG TABLET PO SCH (21:00)
[2021-09-19 21:06] LABS: Schistocytes Few
[2021-09-19 21:07] LABS: Burr Cells Slight; Microcytosis Slight; Ovalocytes Slight; Platelet Estimate Decreased
[2021-09-19 23:58] LABS: Potassium 4.2 MMOL/L (3.5-5.1)
[2021-09-20] MEDS: INSULIN REGULAR 100 UNIT/ML SUBCUT SCH ×6 (00:14→20:37)
[2021-09-20] MEDS: MORPHINE 10 MG/1 ML VIAL IV PRN (01:07)
[2021-09-20 04:10] LABS: ABG Base Excess 3.9 MMOL/L (-2.5-2.5); ABG HCO3 27.8 MMOL/L (20-26); ABG Oxygen Saturation 95.8 % (95-100); ABG PCO2 49.1 MM HG (35-48); ABG PH 7.388 (7.35-7.45); ABG PO2 78.1 MM HG (80-95); Allen Test Positive
[2021-09-20 04:30] LABS: Basophils % 0.1 % (0.0-0.8); Eosinophils % 0.2 % (0.00-10.9); Hematocrit 29.3 VOL% (42.0-52.0); Hemoglobin 9.7 GM/DL (14.0-18.0); Immature Granulocytes % 0.5 %; Immature Granulocytes Absolute 0.04 #; Lymphocytes % 10.8 % (21.2-54.2); Mean Corpuscular HGB Conc 33.1 GM/DL (32-36); Mean Corpuscular Volume 94.2 FL (87-102); Mean Platelet Volume 11.1 FL (9.6-12.0); Monocytes % 8.8 % (1.7-12.7); Neutrophils % 79.6 % (38.7-73.9); Platelet Count 93 T/CUMM (130-400); Red Blood Count 3.11 MC/CUMM (3.8-5.5); Red Cell Distribution Width 13.3 % (9.3-17.3); White Blood Count 8.9 T/CUMM (4-12)
[2021-09-20 04:53] LABS: Hypochromia 1+; Microcytosis 1+; Platelet Estimate Decreased
[2021-09-20 04:54] LABS: Alanine Aminotransferase 23 U/L (16-61); Albumin 2.9 G/DL (3.4-5.0); Alkaline Phosphatase 43 U/L (45-117); Aspartate Amino Transferase 22 U/L (0-37); Bilirubin,Indirect 0.7 MG/DL (0.0-1.0); Blood Urea Nitrogen 27 MG/DL (7-18); Calcium 8.1 MG/DL (8.5-10.1); Carbon Dioxide 30 MMOL/L (21-32); Estimated Glom Filtration Rate 81 ML/MIN; Glucose 111 MG/DL (74-106); Osmolality,Calculated 280.7 MOS/KG (273-304); Potassium 4.3 MMOL/L (3.5-5.1); Sodium 138 MMOL/L (136-145); Total Protein 5.3 G/DL (6.4-8.2)
[2021-09-20] MEDS: POTASSIUM CHLORIDE RIDER 20 MEQ/100 ML PREMIX IV PRN (05:14)
[2021-09-20] MEDS ORDERED: AMIODARONE INJ 100 MG in DEXTROSE 5% 100 ML IV ONE (06:11)
[2021-09-20] MEDS ORDERED: AMIODARONE 150 MG/3 ML VIAL ONE (06:16)
[2021-09-20] MEDS ORDERED: AMIODARONE INJ 450 MG in DEXTROSE 5% 241 ML IV SCH (06:30)
[2021-09-20] MEDS: CEFUROXIME INJ 1,500 MG in SODIUM CHLORIDE 0.9% 100 ML IV SCH ×2 (06:31→18:32)
[2021-09-20] MEDS: KETOROLAC 30 MG/1 ML VIAL IV SCH ×3 (08:28→20:38)
[2021-09-20] MEDS: ASPIRIN EC 81 MG TABLET PO SCH (08:28)
[2021-09-20] MEDS: CHLORHEXIDINE 0.12% ORAL RINSE 60 ML BOTTLE SWISH/SPIT SCH ×3 (08:28→20:37)
[2021-09-20] MEDS: oxyCODONE/ACETAMINOPHEN 5-325 MG TABLET PO PRN ×2 (08:30→20:38)
[2021-09-20] MEDS ORDERED: DOCUSATE SODIUM 100 MG CAPSULE PO PRN (08:42)
[2021-09-20] MEDS ORDERED: MAGNESIUM SULF RIDER 2 GM/50 ML PREMIX IV PRN (08:54)
[2021-09-20] MEDS ORDERED: GLUCAGON 1 MG VIAL IM PRN (08:54)
[2021-09-20] MEDS ORDERED: POTASSIUM CHLORIDE 20 MEQ TABLET PO PRN (08:54)
[2021-09-20] MEDS ORDERED: ACETAMINOPHEN 325 MG TABLET PO PRN (08:54)
[2021-09-20] MEDS ORDERED: MAGNESIUM SULF RIDER 4 GM/100 ML PREMIX IV PRN (08:54)
[2021-09-20] MEDS ORDERED: ALUMINUM/MAGNES/SIMETH MAX STR 30 ML UDCUP PO PRN (08:54)
[2021-09-20] MEDS ORDERED: MAGNESIUM HYDROXIDE SUSP 30 ML UDCUP PO PRN (08:54)
[2021-09-20] MEDS ORDERED: METOPROLOL TARTRATE 25 MG TABLET PO SCH (09:00)
[2021-09-20] MEDS: ONDANSETRON 4 MG/2 ML VIAL IV PRN ×3 (09:00→19:19)
[2021-09-20] MEDS ORDERED: DEXTROSE 10% 250 ML BAG IV PRN (09:04)
[2021-09-20] MEDS: DOCUSATE SODIUM 100 MG CAPSULE PO SCH (10:00)
[2021-09-20] MEDS: ASCORBIC ACID 500 MG TABLET PO SCH ×2 (10:00→20:38)
[2021-09-20] MEDS: PANTOPRAZOLE 40 MG TABLET PO SCH (10:00)
[2021-09-20] MEDS: FERROUS SULFATE 325 MG TABLET PO SCH (10:00)
[2021-09-20] MEDS: SODIUM CHLOR 0.45% KCL 20 MEQ 20 MEQ/1,000 ML BAG IV SCH (10:21)
[2021-09-20] MEDS ORDERED: EPINEPHrine 1 MG/ML VIAL ONE (11:15)
[2021-09-20] MEDS ORDERED: ALBUMIN 5% 25 GM/500 ML VIAL IV ONE (12:00)
[2021-09-20] MEDS: AMIODARONE INJ 450 MG in DEXTROSE 5% 241 ML IV SCH (12:21)
[2021-09-20] MEDS ORDERED: SODIUM CHLORIDE 0.9% 1,000 ML IV PRN (14:21)
[2021-09-20 14:43] LABS: Basophils % 0.1 % (0.0-0.8); Eosinophils % 0.1 % (0.00-10.9); Hematocrit 30.1 VOL% (42.0-52.0); Hemoglobin 9.8 GM/DL (14.0-18.0); Immature Granulocytes % 0.4 %; Immature Granulocytes Absolute 0.04 #; Lymphocytes # 0.7 10*3/uL (1.4-4.0); Lymphocytes % 6.5 % (21.2-54.2); Mean Corpuscular HGB Conc 32.6 GM/DL (32-36); Mean Platelet Volume 10.3 FL (9.6-12.0); Monocytes % 7.3 % (1.7-12.7); Neutrophils % 85.6 % (38.7-73.9); Platelet Count 108 T/CUMM (130-400); Red Blood Count 3.17 MC/CUMM (3.8-5.5); Red Cell Distribution Width 13.2 % (9.3-17.3); White Blood Count 10.7 T/CUMM (4-12)
[2021-09-20 19:41] LABS: Hematocrit 28.1 VOL% (42.0-52.0); Hemoglobin 9.2 GM/DL (14.0-18.0)
[2021-09-20] MEDS: ZALEPLON 5 MG CAPSULE PO PRN (20:38)
[2021-09-20] MEDS: ROSUVASTATIN 10 MG TABLET PO SCH (20:38)
[2021-09-21] MEDS: oxyCODONE/ACETAMINOPHEN 5-325 MG TABLET PO PRN (01:53)
[2021-09-21] MEDS: KETOROLAC 30 MG/1 ML VIAL IV SCH ×4 (03:40→21:46)
[2021-09-21] MEDS: AMIODARONE INJ 450 MG in DEXTROSE 5% 241 ML IV SCH (04:25)
[2021-09-21 05:06] LABS: Basophils % 0.1 % (0.0-0.8); Eosinophils # 0.1 10*3/uL (0.0-0.87); Eosinophils % 1.2 % (0.00-10.9); Hematocrit 28.9 VOL% (42.0-52.0); Hemoglobin 9.3 GM/DL (14.0-18.0); Immature Granulocytes % 0.5 %; Immature Granulocytes Absolute 0.04 #; Lymphocytes # 0.7 10*3/uL (1.4-4.0); Lymphocytes % 7.9 % (21.2-54.2); Mean Corpuscular HGB Conc 32.2 GM/DL (32-36); Mean Corpuscular Volume 95.4 FL (87-102); Mean Platelet Volume 11.3 FL (9.6-12.0); Monocytes % 7.2 % (1.7-12.7); Neutrophils % 83.1 % (38.7-73.9); Red Blood Count 3.03 MC/CUMM (3.8-5.5); Red Cell Distribution Width 13.2 % (9.3-17.3); White Blood Count 8.4 T/CUMM (4-12)
[2021-09-21 05:09] LABS: Platelet Count 101 T/CUMM (130-400)
[2021-09-21 05:26] LABS: Alanine Aminotransferase 24 U/L (16-61); Albumin 2.8 G/DL (3.4-5.0); Alkaline Phosphatase 46 U/L (45-117); Aspartate Amino Transferase 19 U/L (0-37); Bilirubin,Indirect 0.6 MG/DL (0.0-1.0); Blood Urea Nitrogen 33 MG/DL (7-18); Calcium 8.5 MG/DL (8.5-10.1); Carbon Dioxide 30 MMOL/L (21-32); Estimated Glom Filtration Rate 74 ML/MIN; Glucose 118 MG/DL (74-106); Osmolality,Calculated 273.4 MOS/KG (273-304); Potassium 3.8 MMOL/L (3.5-5.1); Sodium 133 MMOL/L (136-145); Total Protein 5.5 G/DL (6.4-8.2)
[2021-09-21 05:40] LABS: Anisocytosis 1+; Macrocytosis 1+; Platelet Estimate Adequate
[2021-09-21] MEDS ORDERED: FUROSEMIDE 40 MG/4 ML VIAL IV ONE (06:00)
[2021-09-21] MEDS ORDERED: POTASSIUM CHLORIDE 20 MEQ TABLET PO ONE (08:09)
[2021-09-21] MEDS: ASCORBIC ACID 500 MG TABLET PO SCH ×2 (08:25→21:45)
[2021-09-21] MEDS: DOCUSATE SODIUM 100 MG CAPSULE PO SCH (08:25)
[2021-09-21] MEDS: PANTOPRAZOLE 40 MG TABLET PO SCH (08:25)
[2021-09-21] MEDS: carvediloL 3.125 MG TABLET PO SCH ×2 (08:25→21:45)
[2021-09-21] MEDS: ASPIRIN EC 81 MG TABLET PO SCH (08:25)
[2021-09-21] MEDS: APIXABAN 5 MG TABLET PO SCH ×2 (08:25→21:45)
[2021-09-21] MEDS: FERROUS SULFATE 325 MG TABLET PO SCH (08:25)
[2021-09-21] MEDS: INSULIN REGULAR 100 UNIT/ML SUBCUT SCH ×4 (08:38→21:48)
[2021-09-21] MEDS: CHLORHEXIDINE 0.12% ORAL RINSE 60 ML BOTTLE SWISH/SPIT SCH ×2 (09:55→21:54)
[2021-09-21] MEDS: AMIODARONE 200 MG TABLET PO SCH ×2 (10:04→21:45)
[2021-09-21] MEDS: SODIUM CHLOR 0.45% KCL 20 MEQ 20 MEQ/1,000 ML BAG IV SCH (16:24)
[2021-09-21] MEDS: ROSUVASTATIN 10 MG TABLET PO SCH (21:44)
[2021-09-21] MEDS: ZALEPLON 5 MG CAPSULE PO PRN (21:44)
[2021-09-22] MEDS: KETOROLAC 30 MG/1 ML VIAL IV SCH ×2 (03:56→08:55)
[2021-09-22 04:17] LABS: Basophils % 0.1 % (0.0-0.8); Eosinophils # 0.3 10*3/uL (0.0-0.87); Eosinophils % 3.2 % (0.00-10.9); Hematocrit 29.4 VOL% (42.0-52.0); Hemoglobin 9.5 GM/DL (14.0-18.0); Immature Granulocytes % 0.7 %; Immature Granulocytes Absolute 0.06 #; Lymphocytes # 0.7 10*3/uL (1.4-4.0); Mean Corpuscular HGB Conc 32.3 GM/DL (32-36); Mean Corpuscular Volume 92.7 FL (87-102); Monocytes % 6.3 % (1.7-12.7); Neutrophils % 81.7 % (38.7-73.9); Platelet Count 141 T/CUMM (130-400); Red Blood Count 3.17 MC/CUMM (3.8-5.5); Red Cell Distribution Width 12.9 % (9.3-17.3)
[2021-09-22 04:38] LABS: Calcium 8.4 MG/DL (8.5-10.1); Potassium 4.9 MMOL/L (3.5-5.1)
[2021-09-22 04:43] LABS: Alanine Aminotransferase 20 U/L (16-61); Albumin 2.6 G/DL (3.4-5.0); Alkaline Phosphatase 48 U/L (45-117); Aspartate Amino Transferase 14 U/L (0-37); Bilirubin,Indirect 0.7 MG/DL (0.0-1.0); Blood Urea Nitrogen 36 MG/DL (7-18); Calcium 8.3 MG/DL (8.5-10.1); Carbon Dioxide 31 MMOL/L (21-32); Estimated Glom Filtration Rate 67 ML/MIN; Glucose 107 MG/DL (74-106); Potassium 4.7 MMOL/L (3.5-5.1); Sodium 136 MMOL/L (136-145); Total Protein 5.5 G/DL (6.4-8.2)
[2021-09-22 04:44] LABS: Osmolality,Calculated 275.4 MOS/KG (273-304)
[2021-09-22] MEDS: FERROUS SULFATE 325 MG TABLET PO SCH (08:50)
[2021-09-22] MEDS: ASPIRIN EC 81 MG TABLET PO SCH (08:50)
[2021-09-22] MEDS: APIXABAN 5 MG TABLET PO SCH (08:50)
[2021-09-22] MEDS: PANTOPRAZOLE 40 MG TABLET PO SCH (08:51)
[2021-09-22] MEDS: ASCORBIC ACID 500 MG TABLET PO SCH (08:51)
[2021-09-22] MEDS: DOCUSATE SODIUM 100 MG CAPSULE PO SCH (08:51)
[2021-09-22] MEDS: carvediloL 3.125 MG TABLET PO SCH (08:51)
[2021-09-22] MEDS: AMIODARONE 200 MG TABLET PO SCH (08:51)
[2021-09-22] MEDS: INSULIN REGULAR 100 UNIT/ML SUBCUT SCH ×2 (08:52→12:41)
[2021-09-22] MEDS: CHLORHEXIDINE 0.12% ORAL RINSE 60 ML BOTTLE SWISH/SPIT SCH (08:52)
[2021-09-22 13:06] VITALS: BP 118/78
== END 2021-09-22 12:56 | disposition home health service (06) | DRG 219 ==
LOC: N.TELES 09-14 16:42 → N.CVR 09-15 10:04 → N.TELES 09-16 17:56 → N.ICU 09-19 10:20 → N.CVR 09-19 11:38 → N.ICU 09-20 15:45 → N.TELES 09-21 14:06